=== PATIENT | male | born 1975 | race Caucasian/White ===

== ENCOUNTER 2021-01-12 07:46 | Emergency (ER) | payer BC ==
[2021-01-12] MEDS ORDERED: IBUPROFEN 600 MG TAB PO STA (08:03)
[2021-01-12] MEDS ORDERED: ACETAMINOPHEN TAB 500 MG TAB PO STA (08:03)
[2021-01-12] MEDS ORDERED: SODIUM CHLORIDE 0.9% 1,000 ML IV STA (08:03)
--- NOTE | 2021-01-12 08:10 | ED ---
URI HPI - General Chief Complaint: Upper Respiratory Infection Stated Complaint: SOB, Fever, COVID + Time Seen by Provider: 01/12/21 07:52 Source: patient Mode of arrival: wheelchair Limitations: no limitations - History of Present Illness Initial Comments: Patient is a 45-year-old male with history of diabetes, presenting to the emergency department with concerns for worsening shortness of breath. Patient states he started having Covid symptoms about 8 days ago, tested positive or days ago. Patient states he's been having intermittent fevers, cough, shortness of breath with exertion as well as headaches, nausea and body aches. He states he occasionally has been taking ibuprofen, no Tylenol. He's had no medications today. He denies history of blood clots. No recent travel. He has been able to tolerate fluids, decreased appetite. He has no further complaints at this time. Upon arrival to the ER, he is febrile to 101.9, pulse is 103, 94% on room air. - Related Data Previous Rx's Medication Instructions Recorded Dexamethasone [Decadron] 6 mg PO DAILY 5 Days #5 tablet 01/12/21 Allergies Allergy/AdvReac Type Severity Reaction Status Date / Time No Known Allergies Allergy Verified 01/12/21 09:02 Review of Systems ROS Statement: Those systems with pertinent positive or pertinent negative responses have been documented in the HPI. ROS Other: All systems not noted in ROS Statement are negative. Past Medical History Past Medical History: Diabetes Mellitus History of Any Multi-Drug Resistant Organisms: None Reported Additional Past Surgical History / Comment(s): leg Past Psychological History: No Psychological Hx Reported Smoking Status: Never smoker Past Alcohol Use History: Rare Past Drug Use History: None Reported General Exam - General Exam Comments Initial Comments: GENERAL: Patient is well-developed and well-nourished. Patient is nontoxic and in no acute distress. HEAD: Atraumatic, normocephalic. EYES: Pupils equal round and reactive to light, extraocular movements intact, sclera anicteric, conjunctiva are normal. Eyelids were unremarkable. ENT: TMs normal, nares patent, oropharynx clear without exudates. Moist mucous membranes. NECK: Normal range of motion, supple without lymphadenopathy or JVD. LUNGS: Unlabored respirations. Breath sounds clear to auscultation bilaterally and equal. No wheezes rales or rhonchi. HEART: Tachycardia rate and rhythm without murmurs, rubs or gallops. ABDOMEN: Soft, nontender, normoactive bowel sounds. No guarding, no rebound. No masses appreciated. : Deferred MUSCULOSKELETAL: Normal extremities with adequate strength and normal range of motion, no pitting or edema. No clubbing or cyanosis. NEUROLOGICAL: Patient is alert and oriented x 3. Motor and sensory are also intact. Cranial nerves II through XII grossly intact. Symmetrical smile. Normal speech, normal gait. PSYCH: Normal mood, normal affect. SKIN: Warm, Dry, normal turgor, no rashes or lesions noted. Limitations: no limitations Course Vital Signs 01/12/21 01/12/21 07:48 08:15 Temperature 101.9 F H Pulse Rate 103 H Respiratory 20 16 Rate Blood Pressure 140/81 O2 Sat by Pulse 94 L Oximetry Medical Decision Making - Medical Decision Making Patient is a 45-year-old male here for Covid symptoms for one week. Symptoms started 8 days ago, he had a positive test 4 days ago. He did arrive febrile, slightly tachycardic, 94% on room air. No Tylenol or Motrin today. Labs are stable, glucose is 275. Chest x-ray shows mild bibasilar opacities, concerning for infiltrates. Patient did meet equal for complications for Covid antiviral therapy. Patient did receive infusion, no adverse side effects. He was also given fluids, Tylenol and Motrin. He reports improvement in his symptoms. I will start him on steroids as well. He is stable for discharge. Return parameters were discussed with the patient and he verbalized understanding. Case discussed with Dr. Leal. - Lab Data Result diagrams: 01/12/21 08:13 01/12/21 08:13 Lab Results 01/12/21 01/12/21 Range/Units 08:13 08:13 WBC 5.0 (3.8-10.6) k/uL RBC 5.15 (4.30-5.90) m/uL Hgb 16.1 (13.0-17.5) gm/dL Hct 44.9 (39.0-53.0) % MCV 87.2 (80.0-100.0) fL MCH 31.3 (25.0-35.0) pg MCHC 35.9 (31.0-37.0) g/dL RDW 12.3 (11.5-15.5) % Plt Count 152 (150-450) k/uL MPV 8.4 Neutrophils % 77 % Lymphocytes % 16 % Monocytes % 4 % Eosinophils % 1 % Basophils % 1 % Neutrophils # 3.9 (1.3-7.7) k/uL Lymphocytes # 0.8 L (1.0-4.8) k/uL Monocytes # 0.2 (0-1.0) k/uL Eosinophils # 0.0 (0-0.7) k/uL Basophils # 0.0 (0-0.2) k/uL Sodium 132 L (137-145) mmol/L Potassium 4.1 (3.5-5.1) mmol/L Chloride 100 (98-107) mmol/L Carbon Dioxide 24 (22-30) mmol/L Anion Gap 8 mmol/L BUN 14 (9-20) mg/dL Creatinine 0.66 (0.66-1.25) mg/dL Est GFR (CKD-EPI)AfAm >90 (>60 ml/min/1.73 sqM) Est GFR (CKD-EPI)NonAf >90 (>60 ml/min/1.73 sqM) Glucose 275 H (74-99) mg/dL Calcium 8.5 (8.4-10.2) mg/dL Total Bilirubin 0.8 (0.2-1.3) mg/dL AST 40 (17-59) U/L ALT 35 (4-49) U/L Alkaline Phosphatase 145 H (38-126) U/L C-Reactive Protein 36.2 H (<10.0) mg/L Total Protein 7.4 (6.3-8.2) g/dL Albumin 4.1 (3.5-5.0) g/dL Disposition Clinical Impression: COVID-19 Disposition: HOME SELF-CARE Condition: Stable Instructions (If sedation given, give patient instructions): Coronavirus Dis ease 2019 (COVID-19) Additional Instructions: Please return to the Emergency Department if symptoms worsen or any other concerns. Continue to alternate between Tylenol and Motrin for fever control and body aches. Start steroids tomorrow as discussed. Increase fluid intake. Follow-up with your PCP. Prescriptions: Dexamethasone [Decadron] 6 mg PO DAILY 5 Days #5 tablet Is patient prescribed a controlled substance at d/c from ED?: No Referrals: Js Ramon MD [Primary Care Provider] - 1-2 days Time of Disposition: 09:56
[2021-01-12 08:22] LABS: Basophils % (A) 1 %; Eosinophils % (A) 1 %; HCT 44.9 % (39.0-53.0); HGB 16.1 gm/dL (13.0-17.5); Lymphocytes # (A) 0.8 k/uL (1.0-4.8); Lymphocytes % (A) 16 %; MCH 31.3 pg (25.0-35.0); MCHC 35.9 g/dL (31.0-37.0); MCV 87.2 fL (80.0-100.0); Mean Platelet Volume 8.4; Monocytes # (A) 0.2 k/uL (0-1.0); Monocytes % (A) 4 %; Neutrophils # (A) 3.9 k/uL (1.3-7.7); Neutrophils % (A) 77 %; Platelet Count 152 k/uL (150-450); RBC 5.15 m/uL (4.30-5.90); RDW 12.3 % (11.5-15.5)
[2021-01-12 08:37] LABS: ALT 35 U/L (4-49); AST 40 U/L (17-59); African American GFR (CKD) >90 (>60 ml/min/1.73 sqM); Albumin 4.1 g/dL (3.5-5.0); Alkaline Phosphatase 145 U/L (38-126); Anion Gap 8 mmol/L; Blood Urea Nitrogen 14 mg/dL (9-20); C Reactive Protein 36.2 mg/L (<10.0); Calcium 8.5 mg/dL (8.4-10.2); Carbon Dioxide 24 mmol/L (22-30); Chloride 100 mmol/L (98-107); Glucose 275 mg/dL (74-99); Non-African American GFR(CKD) >90 (>60 ml/min/1.73 sqM); Potassium 4.1 mmol/L (3.5-5.1); Sodium 132 mmol/L (137-145); Total Bilirubin 0.8 mg/dL (0.2-1.3); Total Protein 7.4 g/dL (6.3-8.2)
[2021-01-12] MEDS ORDERED: BAMLANIVIMAB (EUA) 700 MG, ETESEVIMAB (EUA) 1,400 MG in SODIUM CHLORIDE 0.9% 50 ML IVPB ONE (08:45)
--- NOTE | 2021-01-12 09:00 | XR ---
EXAMINATION TYPE: XR chest 1V portable DATE OF EXAM: 01/12/2021 COMPARISON: NONE HISTORY: Shortness of breath. TECHNIQUE: Single frontal view of the chest is obtained. FINDINGS: There is mild left greater than right bibasilar peripheral opacities. No pleural effusion, or pneumothorax seen. The cardiac silhouette size is within normal limits. The osseous structures are intact. IMPRESSION: Mild bibasilar opacities, concerning for infiltrates.
[2021-01-12] MEDS ORDERED: DEXAMETHASONE SOD PHOSPHATE 10 MG/ML 1 ML VIAL IV STA (09:53)
[2021-01-12 10:05] VITALS: BP 128/75; PULSE 83; RESP 18; TEMP 99
== END 2021-01-12 10:15 | disposition home or self-care (01) ==
LOC: EC 07:46
DX: U07.1 COVID-19 (principal); E11.9 Type 2 diabetes mellitus without complications
CPT/HCPCS: 36415; 80053; 85025; 86140; 71045; 99285; 96365; 96375; 96361; J1100; Q0245

== ENCOUNTER 2021-05-01 11:22 | Emergency (ER) | payer BC ==
[2021-05-01 11:31] VITALS: RESP 18; TEMP 98.4
[2021-05-01] MEDS ORDERED: MORPHINE SULFATE 4 MG/ML SYRINGE IV STA (11:40)
[2021-05-01] MEDS ORDERED: SODIUM CHLORIDE 0.9% 1,000 ML IV STA (11:40)
[2021-05-01 12:21] LABS: VBG PH 7.35 (7.31-7.41)
[2021-05-01 12:34] LABS: ALT 83 U/L (4-49); AST 98 U/L (17-59); African American GFR (CKD) >90 (>60 ml/min/1.73 sqM); Albumin 4.3 g/dL (3.5-5.0); Alkaline Phosphatase 238 U/L (38-126); Amylase 46 U/L (30-110); Anion Gap 8 mmol/L; Blood Urea Nitrogen 8 mg/dL (9-20); Calcium 9.3 mg/dL (8.4-10.2); Carbon Dioxide 28 mmol/L (22-30); Chloride 98 mmol/L (98-107); Glucose 274 mg/dL (74-99); Lipase 56 U/L (23-300); Non-African American GFR(CKD) >90 (>60 ml/min/1.73 sqM); Potassium 3.8 mmol/L (3.5-5.1); Sodium 134 mmol/L (137-145); Total Bilirubin 1.8 mg/dL (0.2-1.3); Total Protein 7.2 g/dL (6.3-8.2)
[2021-05-01 13:14] LABS: HCT 44.9 % (39.0-53.0); HGB 15.1 gm/dL (13.0-17.5); MCH 30.8 pg (25.0-35.0); MCHC 33.7 g/dL (31.0-37.0); MCV 91.4 fL (80.0-100.0); Mean Platelet Volume 8.7; Platelet Count 128 k/uL (150-450); RBC 4.91 m/uL (4.30-5.90); RDW 13.9 % (11.5-15.5); WBC 5.6 k/uL (3.8-10.6)
--- NOTE | 2021-05-01 13:40 | CT ---
EXAMINATION TYPE: CT abdomen pelvis w con DATE OF EXAM: 05/01/2021 COMPARISON: None HISTORY: LLQ pain CT DLP: 2653.6 mGycm CONTRAST: CT scan of the abdomen and pelvis is performed without Oral Contrast and with IV Contrast, patient in jected with 100 mL of Isovue 300. FINDINGS: LUNG BASES-: No visible nodule. No infiltrate. LIVER/GB: Large gallstone noted. No evidence for wall thickening. Mild hepatic steatosis identified . No space occupying hepatic lesion. Biliary tree is of normal caliber. PANCREAS: No inflammation. No distinct mass. SPLEEN: No splenic enlargement. No lesion seen. ADRENALS: No nodule. No thickening. KIDNEYS/BLADDER: No hydronephrosis. No nephrolithiasis. No distinct renal mass. Urinary bladder g rossly unremarkable. BOWEL: Normal appendix. Normal bowel caliber. No inflammation. GENITAL ORGANS: No gross abnormality. LYMPH NODES: No greater than 1cm abdominal or pelvic lymph nodes are appreciated. AORTA: No significant abnormality. OSSEOUS STRUCTURES: Severe degenerative change lumbar spine. OTHER: Haziness within the small bowel mesentery may reflect mesenteric panniculitis. IMPRESSION: 1. Haziness within the small bowel mesentery may reflect mesenteric panniculitis. 2. Cholelithiasis.
--- NOTE | 2021-05-01 16:13 | ED ---
Abdominal Pain HPI - General Chief Complaint: Abdominal Pain Stated Complaint: Abdominal Pain Time Seen by Provider: 05/01/21 11:35 Source: patient, RN notes reviewed Mode of arrival: ambulatory Limitations: no limitations - History of Present Illness Initial Comments: Patient is a 46-year-old male who is a noncompliant diabetic presents to emergency room complaining of abdominal pain. He noted that he took himself off of his metformin due to some GI upset and diarrhea. He notes that he was on it for several years but recently took himself off. He noted that he has not followed up with his primary care to discuss alternative medications. He notes that he has been drinking plenty and pain normal. She denied any other issues or complaints at this time. He denied any headache nausea vomiting diarrhea constipation fever fatigue chills chest pain shortness breath - Related Data Home Medications Medication Instructions Recorded Confirmed lisinopriL 20 mg PO DAILY 05/01/21 05/01/21 metFORMIN HCL [Glucophage] 500 mg PO DAILY 05/01/21 05/01/21 Allergies Allergy/AdvReac Type Severity Reaction Status Date / Time No Known Allergies Allergy Verified 05/01/21 13:57 Review of Systems ROS Statement: Those systems with pertinent positive or pertinent negative responses have been documented in the HPI. ROS Other: All systems not noted in ROS Statement are negative. Past Medical History Past Medical History: Diabetes Mellitus History of Any Multi-Drug Resistant Organisms: None Reported Additional Past Surgical History / Comment(s): r leg Past Psychological History: No Psychological Hx Reported Smoking Status: Never smoker Past Alcohol Use History: Rare Past Drug Use History: None Reported General Exam Limitations: no limitations General appearance: alert, in no apparent distress Head exam: Present: atraumatic, normocephalic, normal inspection Eye exam: Present: normal appearance, PERRL, EOMI. Absent: scleral icterus, conjunctival injection, periorbital swelling Neck exam: Present: normal inspection Respiratory exam: Present: normal lung sounds bilaterally. Absent: respiratory distress, wheezes, rales, rhonchi, stridor Cardiovascular Exam: Present: regular rate, normal rhythm, normal heart sounds. Absent: systolic murmur, diastolic murmur, rubs, gallop, clicks GI/Abdominal exam: Present: soft, tenderness (All quadrants. Very minimally), normal bowel sounds. Absent: distended, guarding, rebound, rigid Extremities exam: Present: normal inspection, full ROM, normal capillary refill. Absent: tenderness, pedal edema, joint swelling, calf tenderness Neurological exam: Present: alert, oriented X3 Psychiatric exam: Present: normal affect, normal mood Skin exam: Present: warm, dry, intact, normal color. Absent: rash Course Vital Signs 05/01/21 05/01/21 11:28 13:52 Temperature 98.4 F Pulse Rate 92 78 Respiratory 18 18 Rate Blood Pressure 111/77 119/72 O2 Sat by Pulse 95 96 Oximetry Medical Decision Making - Medical Decision Making 46-year-old male complaining of abdominal pain. Labs, 1 L normal saline, CT abdomen and pelvis ordered. 4 mg of morphine ordered. Labs unremarkable. CT shows large gallstone, mesenteric panniculitis. Dr. Madden was consulted and noted that CT was unremarkable and that he can follow up outpatient. Case discussed with Dr. Leal, patient can discharge home with follow-up to primary care and GI specialists. - Lab Data Result diagrams: 05/01/21 12:04 05/01/21 12:04 Lab Results 05/01/21 05/01/21 05/01/21 Range/Units 12:04 12:04 12:04 WBC 5.6 (3.8-10.6) k/uL RBC 4.91 (4.30-5.90) m/uL Hgb 15.1 (13.0-17.5) gm/dL Hct 44.9 (39.0-53.0) % MCV 91.4 (80.0-100.0) fL MCH 30.8 (25.0-35.0) pg MCHC 33.7 (31.0-37.0) g/dL RDW 13.9 (11.5-15.5) % Plt Count 128 L (150-450) k/uL MPV 8.7 VBG pH (7.31-7.41) VBG pCO2 (37-51) mmHg VBG HCO3 (24-28) mmol/L Sodium 134 L (137-145) mmol/L Potassium 3.8 (3.5-5.1) mmol/L Chloride 98 (98-107) mmol/L Carbon Dioxide 28 (22-30) mmol/L Anion Gap 8 mmol/L BUN 8 L (9-20) mg/dL Creatinine 0.69 (0.66-1.25) mg/dL Est GFR (CKD-EPI)AfAm >90 (>60 ml/min/1.73 sqM) Est GFR (CKD-EPI)NonAf >90 (>60 ml/min/1.73 sqM) Glucose 274 H (74-99) mg/dL Plasma Lactic Acid Carlos 1.6 (0.7-2.0) mmol/L Calcium 9.3 (8.4-10.2) mg/dL Total Bilirubin 1.8 H (0.2-1.3) mg/dL AST 98 H (17-59) U/L ALT 83 H (4-49) U/L Alkaline Phosphatase 238 H (38-126) U/L Total Protein 7.2 (6.3-8.2) g/dL Albumin 4.3 (3.5-5.0) g/dL Amylase 46 (30-110) U/L Lipase 56 (23-300) U/L Acetone, Qual Negative (Negative) 05/01/21 Range/Units 12:04 WBC (3.8-10.6) k/uL RBC (4.30-5.90) m/uL Hgb (13.0-17.5) gm/dL Hct (39.0-53.0) % MCV (80.0-100.0) fL MCH (25.0-35.0) pg MCHC (31.0-37.0) g/dL RDW (11.5-15.5) % Plt Count (150-450) k/uL MPV VBG pH 7.35 (7.31-7.41) VBG pCO2 46 (37-51) mmHg VBG HCO3 25 (24-28) mmol/L Sodium (137-145) mmol/L Potassium (3.5-5.1) mmol/L Chloride (98-107) mmol/L Carbon Dioxide (22-30) mmol/L Anion Gap mmol/L BUN (9-20) mg/dL Creatinine (0.66-1.25) mg/dL Est GFR (CKD-EPI)AfAm (>60 ml/min/1.73 sqM) Est GFR (CKD-EPI)NonAf (>60 ml/min/1.73 sqM) Glucose (74-99) mg/dL Plasma Lactic Acid Carlos (0.7-2.0) mmol/L Calcium (8.4-10.2) mg/dL Total Bilirubin (0.2-1.3) mg/dL AST (17-59) U/L ALT (4-49) U/L Alkaline Phosphatase (38-126) U/L Total Protein (6.3-8.2) g/dL Albumin (3.5-5.0) g/dL Amylase (30-110) U/L Lipase (23-300) U/L Acetone, Qual (Negative) - Radiology Data Radiology results: report reviewed, image reviewed T abdomen and pelvis: Haziness with the small bowel mesentery may reflect mesenteric panniculitis. Cholelithiasis. Disposition Clinical Impression: Cholelithiasis, Mesenteric panniculitis Disposition: HOME SELF-CARE Condition: Stable Instructions (If sedation given, give patient instructions): Gallstones (ED) Additional Instructions: Please return to the Emergency Department if symptoms worsen or any other concerns. Follow-up primary care to resume diabetic medication. Follow-up with GI specialist in the next several days. Eat a bland diet to a digestion easy and prevent abdominal issues. Increase oral fluids. Is patient prescribed a controlled substance at d/c from ED?: No Referrals: Js Ramon MD [Primary Care Provider] - 1-2 days Micheal Roy MD [STAFF PHYSICIAN] - 1-2 days Time of Disposition: 16:13
[2021-05-01 16:48] VITALS: BP 129/72; PULSE 82
[2021-05-01 16:50] LABS: Appearance,Urine Clear (Clear); Bilirubin,Urine Negative (Negative); Blood,Urine Negative (Negative); Color,Urine Yellow; Glucose,Urine (UA) 4+ (Negative); Leukocyte Esterase,Urine Negative (Negative); Nitrite,Urine Negative (Negative); PH, Urine 5.5 (5.0-8.0); Protein,Urine Trace (Negative)
[2021-05-01 16:51] LABS: Specific Gravity,Urine >1.050 (1.001-1.035)
[2021-05-01 16:52] LABS: Ketones,Urine 3+ (Negative)
[2021-05-01 16:59] LABS: Band Neutrophils % 2 %; Eosinophils # (M) 0.06 k/uL (0-0.7); Lymphocytes # (M) 2.13 k/uL (1.0-4.8); Monocytes # (M) 0.62 k/uL (0-1.0); Neutrophils % (M) 48 %; Nucleated Red Blood Cells 0 /100 WBC (0-0); Total Cells Counted 100
[2021-05-01 17:00] LABS: Reactive Lymphocytes Present
== END 2021-05-01 17:01 | disposition home or self-care (01) ==
LOC: EC 11:22
DX: K80.20 Calculus of gallbladder without cholecystitis without obstruction (principal); K65.4 Sclerosing mesenteritis; E11.9 Type 2 diabetes mellitus without complications; Z79.84 Long term (current) use of oral hypoglycemic drugs; Z79.899 Other long term (current) drug therapy
CPT/HCPCS: 36415; 80053; 82150; 82803; 82009; 83605; 83690; 85025; 81003; 74177; 96374; 96361; 99284; J2270; Q9967

== ENCOUNTER → 2021-05-16 | Outpatient (CLI) | payer BC ==
--- NOTE | 2021-05-16 14:09 | US ---
EXAMINATION TYPE: US abdomen comp/pelvis limited DATE OF EXAM: 05/16/2021 COMPARISON: NONE CLINICAL HISTORY: K81.9 Cholecystitis, unspecified. Elevated liver enzymes EXAM MEASUREMENTS: Liver Length: 17.6 cm Gallbladder Wall: .2 cm CBD: .5 cm Spleen: 18 cm Right Kidney: 11.2 x 5.3 x 5.3 cm Left Kidney: 11.2 x 5.6 x 5.9 cm Pancreas: Obscured by bowel gas Liver: Increased attenuation Gallbladder: 2.4 cm stone CBD: wnl Spleen: Enlarged Right Kidney: No hydronephrosis or masses seen Left Kidney: No hydronephrosis or masses seen Upper IVC: wnl Abd Aorta: wnl IMPRESSION: 1. Splenomegaly and hepatomegaly. 2. Cholelithiasis
== END | disposition home or self-care (01) ==
LOC: RADUSWWP 12:31
PROVIDERS: ATTEND Family Medicine
DX: K80.10 Calculus of gallbladder with chronic cholecystitis without obstruction (principal)
CPT/HCPCS: 76700

== ENCOUNTER 2021-05-27 09:02 | Day surgery (SDC) | payer BC ==
[2021-05-23 12:45] VITALS: BMI 34.9
[~2021-05-27 09:02] MED LIST: ACETAMINOPHEN TAB 500 MG TAB PO PRN; DEXAMETHASONE SOD PHOSPHATE 4 MG/ML 1 ML VIAL IV ONE; HEPARIN SODIUM,PORCINE/PF 5,000 UNIT/0.5 ML SYRINGE SQ PRN; LACTATED RINGERS 1,000 ML IV SCH; MIDAZOLAM 2 MG/2 ML VIAL IV PRN; ONDANSETRON 4 MG/2 ML VIAL IVP ONE; SCOPOLAMINE 1.5MG/72HR PATCH TRANSDERM ONE; ceFAZolin 3 GM in SODIUM CHLORIDE 0.9% 100 ML IVPB PRN
[2021-05-27] MEDS ORDERED: LIDOCAINE 1% (10MG/ML) FOR IV START INTRADERMA ONE (09:40)
[2021-05-27 09:41] LABS: Glucose,Whole Blood 184 mg/dL (75-99)
[2021-05-27 09:42] VITALS: TEMP 97
[2021-05-27] MEDS ORDERED: BUPIVACAINE (PF) 0.5% 30 ML VIAL SQ ONE ×2 (10:04→11:20)
--- NOTE | 2021-05-27 10:22 | P.GSHP ---
History of Present Illness H&P Date: 05/27/21 Chief Complaint: Right upper quadrant pain This a 46-year-old male who presents today for laparoscopic cholestatic.. Patient's echo withdrawn quadrant pain. He is known to have cholelithiasis. Past Medical History Past Medical History: Diabetes Mellitus, GERD/Reflux, Hypertension Additional Past Medical History / Comment(s): GALLBLADDER DISORDER History of Any Multi-Drug Resistant Organisms: None Reported Past Surgical History: Orthopedic Surgery Additional Past Surgical History / Comment(s): rT leg TUMOR ROVED FROM BONE Past Anesthesia/Blood Transfusion Reactions: No Reported Reaction Smoking Status: Never smoker - Past Family History Mother Family Medical History: Cancer Father Family Medical History: Cancer Medications and Allergies Home Medications Medication Instructions Recorded Confirmed Type lisinopriL 20 mg PO DAILY 05/01/21 05/27/21 History Glimepiride [Amaryl] 1 mg PO BID 05/23/21 05/27/21 History Omeprazole 40 mg PO BID 05/23/21 05/27/21 History Allergies Allergy/AdvReac Type Severity Reaction Status Date / Time No Known Allergies Allergy Verified 05/27/21 09:23 Surgical - Exam Vital Signs Temp Pulse Resp BP Pulse Ox 97.0 F L 82 16 140/78 98 05/27/21 09:40 05/27/21 09:40 05/27/21 09:40 05/27/21 09:40 05/27/21 09:40 - General well developed, well nourished, no distress - Eyes PERRL - ENT normal pinna - Neck no masses - Respiratory normal expansion - Cardiovascular Rhythm: regular - Abdomen Abdomen: soft, non tender Results - Labs Abnormal Lab Results - Last 24 Hours (Table) 05/27/21 Range/Units 09:37 POC Glucose (mg/dL) 184 H (75-99) mg/dL Assessment and Plan Assessment: Cholelithiasis Quadrant pain We'll perform laparoscopic cholecystectomy
[2021-05-27] MEDS ORDERED: fentaNYL (PF) 50 MCG/ML 2 ML AMP ONE (10:47)
[2021-05-27] MEDS ORDERED: MIDAZOLAM 2 MG/2 ML VIAL ONE (10:47)
[2021-05-27] MEDS ORDERED: LIDOCAINE 1% INJ 10MG/ML (20 ML MDV) ONE (10:47)
[2021-05-27] MEDS ORDERED: NEOSTIGMINE 1 MG/ML 10 ML VIAL ONE (10:47)
[2021-05-27] MEDS ORDERED: SUCCINYLCHOLINE CHLORIDE VIAL 200 MG/10 ML VIAL IV ONE (10:47)
[2021-05-27] MEDS ORDERED: HYDROmorphone (PF) 1 MG/ML ONE (10:47)
[2021-05-27] MEDS ORDERED: PROPOFOL 10 MG/ML 20 ML VIAL IV ONE (10:47)
[2021-05-27] MEDS ORDERED: GLYCOPYRROLATE 0.2 MG/ML 2 ML VIAL ONE (10:47)
[2021-05-27] MEDS ORDERED: ROCURONIUM 10 MG/ML (5 ML VIAL) IV ONE (10:47)
[2021-05-27] MEDS ORDERED: KETAMINE 10 MG/ML 20 ML VIAL ONE (10:47)
--- NOTE | 2021-05-27 11:47 | P.OP ---
Date of Procedure: 05/27/21 Preoperative Diagnosis: Cholelithiasis Postoperative Diagnosis: Cholelithiasis Procedure(s) Performed: Laparoscopic cholecystectomy Anesthesia: PATSY Surgeon: George Giles Estimated Blood Loss (ml): 5 Pathology: other (Gallbladder) Condition: stable Disposition: PACU Description of Procedure: The patient was placed on the operating table. The patient received a general endotracheal tube anesthesia. The patients abdomen was prepped and draped in the usual sterile fashion. Through an infraumbilical stab incision, the fascia of the anterior abdominal wall was grasped with a pair of Kochers and then the Veress needle was placed in the peritoneal cavity. Position of the Veress needle was confirmed with positive drop test. The abdomen was then insufflated. After adequate insufflation, the 10 mm trocar was placed in the peritoneal cavity. Following this the laparoscope was placed in the peritoneal cavity. The patient was placed in the head-up, right side up position and then a 5 mm trocar was placed in the right lateral and right subcostal position under direct visualization. A 8 mm trocar was placed in the epigastric position. The gallbladder was grasped in the fundus and infundibulum. Traction on the gallbladder was placed in the lateral and the cephalad positions. The triangle of Calot was visualized.. The cystic duct was bluntly dissected until the union of the cystic duct and common bile duct was seen. A critical view of safety was achieved. The cystic duct was then divided and sealed with the Harmonic scissors. A PDS Endoloop was then placed throughout the cystic duct stump. The cystic artery divided and sealed with the Harmonic scissors. The gallbladder was then removed from the liver bed using Harmonic scissors. The gallbladder was then extracted through the epigastric port site. Operative field was checked for any bleeding spots and Harmonic scissors was used to coagulate the liver bed. The abdomen was irrigated. The trocars were removed. The skin was closed using interrupted 3-0 Vicryl suture. Dermabond dressing were applied. The patient tolerated the procedure well.
[2021-05-27] MEDS ORDERED: KETOROLAC 15 MG/ML 1 ML VIAL ONE (11:57)
[2021-05-27] MEDS ORDERED: ONDANSETRON 4 MG/2 ML VIAL ONE (11:57)
[2021-05-27 11:58] LABS: Glucose,Whole Blood 242 mg/dL (75-99)
[2021-05-27] MEDS ORDERED: KETOROLAC 15 MG/ML 1 ML VIAL IVP ONE (11:59)
[2021-05-27] MEDS: HYDROmorphone 0.5 MG/0.5 ML SYRINGE IVP PRN ×2 (11:59→12:08)
[2021-05-27] MEDS ORDERED: ONDANSETRON 4 MG/2 ML VIAL IVP ONE (12:00)
[2021-05-27] MEDS ORDERED: INSULIN ASPART (NovoLOG) 100 UNIT/ML VIAL SQ ONE (12:03)
[2021-05-27 12:40] VITALS: RESP 18
[2021-05-27 13:05] VITALS: PULSE 52
[2021-05-27 13:14] VITALS: BP 133/83
== END 2021-05-27 13:47 | disposition home or self-care (01) ==
LOC: OR 09:02
PROVIDERS: ATTEND Surgery
DX: K80.10 Calculus of gallbladder with chronic cholecystitis without obstruction (principal); E11.9 Type 2 diabetes mellitus without complications; K21.9 Gastro-esophageal reflux disease without esophagitis; I10 Essential (primary) hypertension; Z79.84 Long term (current) use of oral hypoglycemic drugs
CPT/HCPCS: 47562; 88304; J2250; J0330; J1100; J2710; J0690; J2405; J2001; J3010; J1170 ×2; J1885; J2704; J1644

== ENCOUNTER → 2024-09-08 | Outpatient (CLI) | payer BC ==
--- NOTE | 2024-09-08 11:44 | US ---
EXAMINATION TYPE: US abdomen complete DATE OF EXAM: 09/08/2024 COMPARISON: US(05/16/2021), CT head and pelvis 05/01/2021 CLINICAL INDICATION: Male, 49 years old with history of R74.8 ABNORMAL LEVELS OF OTHER SERUM ENZYMES; DM, F/U from prior physical TECHNIQUE: Grayscale and color Doppler imaging of the abdomen was performed. FINDINGS: EXAM MEASUREMENTS: Liver Length: 18.4 cm Gallbladder Wall: Surgically absent CBD: 0.4 cm, color Doppler imaging was utilized to isolate the common bile duct for measurement. Spleen: 12.5 cm Right Kidney: 11.9x5.8x7.6 cm Left Kidney: 11.9x7.2x6.4 cm COMBINATION WINDOW INSTALLER NOTES: limited due to gas and bowel/body habitus Pancreas: Obscured by bowel gas Liver: Increased attenuation, decreased visualization of vessels suggestive of fatty infiltrate diff icult to penetrate Gallbladder: Surgically absent CBD: wnl Spleen: wnl Right Kidney: No hydronephrosis or masses seen Left Kidney: No hydronephrosis or masses seen Upper IVC: partially visualized Abd Aorta: obscured by bowel at prox, wnl at mid and distal Visualized portions of the upper IVC and abdominal aorta are within normal limits. The pancreas is ob scured by overlying bowel gas. The liver demonstrates diffusely increased echogenicity with decreased visualization of vessels and is difficult to penetrate. This appearance limits evaluation for small intrahepatic masses. Liver is enlarged. No gross evidence of mass. The proximal portion of the abdomi nal aorta is obscured by overlying bowel gas. No hydronephrosis, shadowing renal calculi, or solid ma sses identified. The spleen is within normal limits. Common bile duct is within normal limits. Gallbl adder is surgically absent. IMPRESSION: 1. Hepatomegaly with diffuse fatty infiltration. 2. Post cholecystectomy changes. [facility], , 09/08/2024 11:42 AM
== END | disposition home or self-care (01) ==
LOC: RADUSWWP 07:00
PROVIDERS: ATTEND Internal Medicine
DX: R74.8 Abnormal levels of other serum enzymes (principal); R16.0 Hepatomegaly, not elsewhere classified; Z90.49 Acquired absence of other specified parts of digestive tract
CPT/HCPCS: 76700